=== PATIENT | male | born 1955 | race Caucasian/White ===

== ENCOUNTER 2017-11-25 08:44 | Emergency (ER) | payer SELFPAY ==
[2017-11-25 08:59] VITALS: BP 131/80
--- NOTE | 2017-11-25 09:48 | XRAY Report ---
EXAM: RIGHT TOE RADIOGRAPHY EXAM DATE: 11/25/2017 09:16 AM. CLINICAL HISTORY: Right great toe injury. COMPARISON: None. TECHNIQUE: 3 views. FINDINGS: Bones: Cannot exclude nondisplaced fracture distal right first proximal phalanx. Joints: No subluxations. Soft Tissues: Mild soft tissue swelling. IMPRESSION: Cannot exclude nondisplaced fracture distal right first proximal phalanx. Suggest follow- up x-rays in 10-14 days' time for reassessment. [facility] Referring Provider Line: [phone] SITE ID: [id number]
--- NOTE | 2017-11-25 11:02 | ED Physician Documentation ---
PD HPI LOWER EXT INJURY - Stated complaint Stated Complaint: RT GREAT TOE INJURY - Chief complaint Chief Complaint: Ext Problem - History obtained from History obtained from: Patient, Family - History of Present Illness PD HPI LOW EXT INJURY LOCATION: Right, Toe (great) Type of injury: Blunt / blow Where injury occurred: Home Timing - onset: How many days ago (2) Timing - duration: Days (2) Timing - details: Abrupt onset, Still present Improved by: Rest, Immobilization Worsened by: Moving, Palpating Associated symptoms: Swelling, Discolored Contributing factors: No: Anticoagulated Similar symptoms before: Has not had sx before Recently seen: Not recently seen - Additional information Additional information: 62-year-old male stubbed his toe on the stairs 3 nights ago and has had significant pain and swelling is unable to get comfortable unable to sleep at night. Review of Systems Constitutional: denies: Fever Eyes: denies: Decreased vision Respiratory: denies: Cough GI: denies: Vomiting : denies: Dysuria Skin: denies: Rash Musculoskeletal: reports: Joint pain, Extremity swelling, Pain with weight bearing. denies: Back pain, Extremity pain Neurologic: denies: Generalized weakness, Focal weakness, Numbness PD PAST MEDICAL HISTORY - Past Medical History Past Medical History: No - Present Medications Home Medications: Ambulatory Orders Medication Instructions Recorded Confirmed oxyCODONE/ACET 5/325 [Percocet 5 1 - 2 each PO Q4-6H PRN #12 tablet 11/25/17 mg/325 mg] - Allergies Allergies/Adverse Reactions: Allergies Allergy/AdvReac Type Severity Reaction Status Date / Time No Known Drug Allergies Allergy Verified 11/25/17 08:59 - Social History Does the pt smoke?: No Smoking Status: Never smoker PD ED PE NORMAL - Vitals Vital signs reviewed: Yes (hypertensive) - General General: Alert and oriented X 3, No acute distress, Well developed/nourished - HEENT HEENT: Atraumatic, PERRL - Neck Neck: Supple, no meningeal sign - Cardiac Cardiac: RRR, No murmur - Respiratory Respiratory: No respiratory distress, Clear bilaterally - Abdomen Abdomen: Soft, Non tender - Back Back: No CVA TTP, No spinal TTP - Derm Derm: Normal color, Warm and dry, No rash - Extremities Extremities: No deformity, No edema, Other (The right great toe is erythematous swollen and tender without surrounding erythema or lymphangitic streaking. The distal n/v is intact. ) - Neuro Neuro: Alert and oriented X 3, No motor deficit, No sensory deficit, Normal speech Eye Opening: Spontaneous Motor: Obeys Commands Verbal: Oriented GCS Score: 15 - Psych Psych: Normal mood, Normal affect Results - Vitals Vitals: Vital Signs - 24 hr 11/25/17 08:56 Temperature 36.3 C L Heart Rate 82 Respiratory 16 Rate Blood Pressure 131/80 H O2 Saturation 99 Oxygen O2 Source Room air - Rads (name of study) right toes Radiology: Prelim report reviewed (Impression cannot exclude nondisplaced fracture distal right first proximal phalanx. Suggest follow-up x-rays in 10- 14 days time for reassessment.), EMP read indepedently, See rad report PD MEDICAL DECISION MAKING - ED course Complexity details: reviewed results, re-evaluated patient, considered differential, d/w patient, d/w family ED course: 62-year-old male stubbed his toe looks like he has has a fracture nondisplaced through the distal portion of the proximal phalanx of the right great toe. He is placed into a postop shoe with a metatarsal bar padding. He will follow-up with Ortho as needed. Departure - Departure Disposition: 01 Home, Self Care Clinical Impression: Toe fracture, right Qualifiers: Encounter type: initial encounter Toe: great toe Fracture type: closed Phalanx : proximal Fracture alignment: nondisplaced Qualified Code(s): S92.414A - Nondisplaced fracture of proximal phalanx of right great toe, initial encounter for closed fracture Condition: Stable Instructions: ED Fx Toe Closed Follow-Up: Naz Tompkins ARNP [Primary Care Provider] - [facility] [Provider Group] Prescriptions: oxyCODONE/ACET 5/325 [Percocet 5 mg/325 mg] 1 - 2 each PO Q4-6H PRN #12 tablet PRN Reason: Pain Discharge Date/Time: 11/25/17 11:25
== END 2017-11-25 11:25 | disposition home or self-care (01) ==
LOC: ED 08:44
DX: S92.414A Nondisplaced fracture of proximal phalanx of right great toe, initial encounter for closed fracture (principal); W18.40XA Slipping, tripping and stumbling without falling, unspecified, initial encounter
CPT/HCPCS: 73660; 99283